=== PATIENT | male | born 1990 ===

== ENCOUNTER 2018-05-01 21:29 | Emergency (ER) | payer SELFPAY ==
[2018-05-01 21:35] VITALS: TEMP 98
[2018-05-01 22:07] LABS: BASO % 0.5 % (0.0-2.0); EOS # 0.1 K/uL (0.0-0.7); EOS % 1.2 % (0.0-4.0); LYMPH # 1.9 K/uL (1.0-4.3); LYMPH % 29.7 % (20.0-40.0); MEAN CELL VOLUME 87.5 fl (80.0-94.0); MEAN CORPUSCULAR HEMOGLOBIN 30.5 pg (27.0-31.0); MEAN CORPUSCULAR HGB CONC 34.9 g/dL (33.0-37.0); MEAN PLATELET VOLUME 8.2 fl (7.2-11.7); MONO # 0.4 K/uL (0.0-0.8); MONO % 5.8 % (0.0-10.0); NEUT # 4.1 K/uL (1.8-7.0); NEUT % 62.8 % (50.0-75.0); NRBC % 0.1 % (0.0-0.0); RBC 5.23 Mil/uL (4.40-5.90); RED CELL DISTRIBUTION WIDTH 12.6 % (11.5-14.5); WHITE BLOOD COUNT 6.5 K/uL (4.8-10.8)
--- NOTE | 2018-05-01 22:15 | ED PDOC ---
HPI: General Adult Time Seen by Provider: 05/01/18 21:43 Chief Complaint (Nursing): Medical Clearance Chief Complaint (Provider): medical clearance History Per: Patient History/Exam Limitations: intoxication (alcohol) Onset/Duration Of Symptoms: Hrs Additional Complaint(s): Jose Alejandro Rodriguez is a 28 year old male, with no significant past medical history, who was brought to the emergency department for medical and psychiatric clearance by [facility]. Patient was brought for clearance for incarceration. Patient reported to be intoxicated by [facility]. Patient noted to have a visible abrasion to right forehead but doesn't recall how it happened. Limited history due to alcohol intoxication. PMD: None provided. Past Medical History Reviewed: Unable To Obtain Vital Signs: Last Vital Signs Temp 98 F 05/01/18 21:32 Pulse 120 H 05/01/18 21:32 Resp 20 05/01/18 21:32 BP 143/75 05/01/18 21:32 Pulse Ox 99 05/01/18 21:32 - Family History Family History: States: Unknown Family Hx - Allergies Allergies/Adverse Reactions: Allergies Allergy/AdvReac Type Severity Reaction Status Date / Time No Known Allergies Allergy Verified 05/01/18 21:32 Review of Systems Review Of Systems: ROS cannot be obtained secondary to pt's inabilty to answer questions. Constitutional: Positive for: Other (head injury) Physical Exam - Reviewed Nursing Documentation Reviewed: Yes Vital Signs Reviewed: Yes - Physical Exam Appears: Positive for: No Acute Distress Head Exam: Positive for: NORMAL INSPECTION, NORMOCEPHALIC. Negative for: ATRAUMATIC (4 cm abrasion to right side of forehead) Skin: Positive for: Normal Color, Warm, Dry Eye Exam: Positive for: Normal appearance, EOMI, PERRL Neck: Positive for: Painless ROM Cardiovascular/Chest: Positive for: Regular Rate, Rhythm. Negative for: Murmur Respiratory: Positive for: Normal Breath Sounds. Negative for: Respiratory Distress Gastrointestinal/Abdominal: Positive for: Normal Exam, Soft. Negative for: Tenderness Back: Positive for: Normal Inspection. Negative for: L CVA Tenderness, R CVA Tenderness, Vertebral Tenderness Extremity: Positive for: Normal ROM (upper and lower extremities). Negative for: Deformity, Swelling Neurologic/Psych: Positive for: Alert - Laboratory Results Result Diagrams: 05/01/18 21:50 05/01/18 21:50 - ECG O2 Sat by Pulse Oximetry: 99 (RA) Pulse Ox Interpretation: Normal Medical Decision Making Medical Decision Making: Time: 21:43 Initial Impression: 28 y/o male brought for medical and psychiatric clearance in setting of alcohol abuse and head injury Initial Plan: --Head w/o contrast [CT] --Alcohol serum --CMP --Drug screen, urine --Crisis evaluation --CBC w/ differential --Tylenol 325 mg tab 650 mg PO --Reevaluation Time: 22:58 CT Head w/o contrast FINDINGS: BRAIN No acute intraparenchymal hemorrhage. No mass lesion. No CT evidence for acute territorial infarct. No midline shift or extra-axial collections. VENTRICLES: No hydrocephalus. ORBITS: The orbits are unremarkable. SINUSES AND MASTOIDS: The paranasal sinuses and mastoid air cells are clear. BONES: No fracture. SOFT TISSUES: Unremarkable. IMPRESSION: No acute intracranial abnormality. Time: 00:54 Patient was evaluated by crisis who finds him clinically sober and is cleared for discharge into police custody. Diagnosis is alcohol intoxication and forehead abrasion. Scribe Attestation: Documented by Pito Gerber, acting as a scribe for Mian Marlow MD. Provider Scribe Attestation: All medical record entries made by the Scribe were at my direction and personally dictated by me. I have reviewed the chart and agree that the record accurately reflects my personal performance of the history, physical exam, medical decision making, and the department course for this patient. I have also personally directed, reviewed, and agree with the discharge instructions and disposition. Disposition - Clinical Impression Clinical Impression: Alcohol intoxication, Forehead abrasion - Patient ED Disposition Is Patient to be Admitted: No - Disposition Disposition: Discharged/Transfer to Law Enforcement Disposition Time: 00:54 Condition: STABLE Additional Instructions: Patient is medically and psychiatrically stable for incarceration CONTACT ADDICTION SERVICES HOTLINE FOR SUBSTANCE ABUSE ASSISTANCE [phone] Instructions: Alcohol Abuse and Alcoholism (DC) Forms: [facility] ([place]i)
[2018-05-01 22:19] LABS: ALB/GLOB RATIO 1.2 (1.0-2.1); ALT/SGPT 26 U/L (21-72); AST/SGOT 30 U/L (17-59); BLOOD UREA NITROGEN 7 mg/dl (9-20); GFR NON-AFRICAN AMERICAN > 60
[2018-05-02 00:53] VITALS: BP 127/61; RESP 18
[2018-05-02 00:54] VITALS: PULSE 86
[2018-05-02 00:56] VITALS: O2SAT 99
[2018-05-02 01:39] LABS: BARBITURATES, UR NEGATIVE (NEGATIVE); BENZODIAZEPINES, UR NEGATIVE (NEGATIVE); OPIATES, UR NEGATIVE (NEGATIVE); PHENCYCLIDINE, UR NEGATIVE (NEGATIVE)
--- NOTE | 2018-05-02 13:57 | CT ---
Date of service: 05/01/2018 PROCEDURE: CT HEAD WITHOUT CONTRAST. HISTORY: head injury COMPARISON: None available. TECHNIQUE: Axial computed tomography images were obtained through the head/brain without intravenous contrast. Radiation dose: Total exam DLP = 1018.1 mGy-cm. This CT exam was performed using one or more of the following dose reduction techniques: Automated exposure control, adjustment of the mA and/or kV according to patient size, and/or use of iterative reconstruction technique. FINDINGS: HEMORRHAGE: No intracranial hemorrhage. BRAIN: Normal atkins-white matter differentiation and density are appreciated throughout the cerebrum and cerebellum with the brainstem appearing unremarkable as well. There is no mass effect. There is no suspicious extra-axial fluid collection and the midline brain anatomy appears diffusely unremarkable. VENTRICLES: Unremarkable. No hydrocephalus. CALVARIUM: No destructive bony lesion or displaced fracture identified including through the skullbase. PARANASAL SINUSES: Unremarkable as visualized. No significant inflammatory changes. MASTOID AIR CELLS: Unremarkable as visualized. No inflammatory changes. OTHER FINDINGS: None. IMPRESSION: Unremarkable noncontrast CT of the Head. Concordant preliminary report from [employer], 05/01/2018.
== END 2018-05-02 01:38 ==
LOC: H.ER 21:29
DX: F10.129 Alcohol abuse with intoxication, unspecified (principal); S00.81XA Abrasion of other part of head, initial encounter; Y92.89 Other specified places as the place of occurrence of the external cause
CPT/HCPCS: 70450; 80053; 85025; 99282; G0480